=== PATIENT | male | born 1940 | race Caucasian/White ===

== ENCOUNTER 2018-12-02 19:04 | Inpatient (IN) ==
[2018-12-02] MEDS ORDERED: NS 1,000 ML ONE (19:22)
[2018-12-02] MEDS ORDERED: NS 1,000 ML IV ONE (19:25)
--- NOTE | 2018-12-02 19:56 | Diag Imaging Result Doc PS360 ---
EXAM: CHEST-PORTABLE 12/02/2018 HISTORY: ams TECHNIQUE: AP upright portable at 1937 COMMENT: There is cardiomegaly. The inspiration is less optimal than on the previous examination of 12/05/2012. There is increased pulmonary vascularity. There is atelectasis or pneumonia present in the left lower lobe and the right middle lobe. IMPRESSION: Poor inspiration. Cardiomegaly. Bilateral atelectasis versus pneumonia. Electronically signed by Alan Ruggiero 12/02/2018 7:53 PM
[2018-12-02 20:15] LABS: BASO# 0.04 X1000 (0.0-0.2); BASO% 0.3 % (0.0-0.8); EOS# 0.41 X1000 (0.0-0.7); EOS% 2.7 % (0.0-10.0); HEMATOCRIT 36.5 % (42.0-52.0); IMM GRAN# 0.32 X1000 (0.0-0.04); IMM GRAN% 2.1 % (0.0-0.5); LYMPH# 1.11 X1000 (1.2-3.4); LYMPH% 7.4 % (20.5-51.1); MCH 30.6 PG (27-31); MCHC 30.1 g/dL (33-37); MCV 101.7 FL (81-99); MPV 11.3 FL (7.4-10.4); NEUT# 11.61 X1000 (1.4-6.5); NEUT% 77.5 % (42.2-75.2); PLT 338 X1000 (130-400); RBC 3.59 XMIL (4.7-6.1); RDW 16.6 % (11.5-14.5); WBC 14.99 X1000 (4.8-10.8)
[2018-12-02 20:17] LABS: URINE SOURCE CATH
[2018-12-02 20:18] LABS: UR EPITHELIAL CELLS <10 /HPF (<10); URINE BACTERIA NEGATIVE /HPF; URINE RBC <10 /HPF (<10); URINE WBC <10 /HPF (<10)
[2018-12-02 20:19] LABS: BILIRUBIN URINE SMALL (NEGATIVE); BLOOD URINE NEGATIVE (NEGATIVE); COLOR YELLOW; GLUCOSE URINE NEGATIVE (NEGATIVE); KETONE URINE NEGATIVE (NEGATIVE); LEUKOCYTES URINE NEGATIVE (NEGATIVE); NITRITE URINE NEGATIVE (NEGATIVE); PROTEIN URINE 30 mg/dL (NEGATIVE); SP GRAVITY URINE 1.026; TURBIDITY URINE CLEAR (CLEAR); UROBILINOGEN URINE NORMAL (NORMAL)
[2018-12-02] MEDS ORDERED: LEVAQUIN 500 MG/D5W 500 MG/100 ML IVPB IV SCH (20:45)
[2018-12-02 20:52] LABS: ALB/GLOB RATIO 1.2; ALBUMIN 3.4 g/dL (3.5-5.0); CALCIUM 8.2 mg/dL (8.8-10.2); CREATININE 4.4 mg/dL (0.7-1.2); POTASSIUM 5.4 mmol/L (3.5-5.1); TOTAL BILIRUBIN 0.59 mg/dL (0.20-1.00); TOTAL PROTEIN 6.3 g/dL (6.3-8.3)
--- NOTE | 2018-12-02 20:56 | Diag Imaging Result Doc PS360 ---
EXAM: CT HEAD W/O CONTRAST 12/02/2018 HISTORY: ams TECHNIQUE: This exam was performed using automated exposure control, adjustment of mA or kV according to patient size, and/or use of iterative reconstruction technique. COMMENT: There are calcifications in the vertebral and internal carotid arteries as well as the basilar artery. There is mild generalized cerebral atrophy. There is particular ex vacuo enlargement of the posterior horn of the left lateral ventricle. There is no evidence of bleed or mass effect. There is encephalomalacia in the external capsule on the left and around the posterior sylvian fissure. There are no previous studies available for comparison. The visualized paranasal sinuses are clear. The calvarium is intact. IMPRESSION: Atrophy and chronic ischemic change on the left. No evidence of acute disease. Electronically signed by Alan Ruggiero 12/02/2018 8:54 PM
--- NOTE | 2018-12-02 21:03 | Diag Imaging Result Doc PS360 ---
EXAM: CT ABDOMEN/PELVIS W/O CONTRAST 12/02/2018 HISTORY: abdominal distension / pain TECHNIQUE: This exam was performed using automated exposure control, adjustment of mA or kV according to patient size, and/or use of iterative reconstruction technique. COMMENT: The current study is compared with the previous examination of 03/21/2016. There is cardiomegaly which was also present previously. There are bilateral pleural effusions which were not present at the time the previous study. There is compressive atelectasis in both lower lobes and the lingula. There is a large amount of ascites. This was also not present time the previous study. There is anasarca. The spleen has not changed significantly in appearance. The liver is considerably more nodular contour particularly over the lower left lobe. There are bilateral renal cysts one in the upper pole being hyperdense. This was also the case at the time the previous study. The aorta is not distended. There are no apparent gallstones. The pancreas is grossly normal considering the lack of contrast. There is diverticulosis in the sigmoid colon there is a Maya catheter in the bladder. There is a large left hydrocele and fluid containing inguinal hernia on the left. There is a right hip prosthesis. IMPRESSION: Bilateral pleural effusions, anasarca, severe ascites and cirrhosis. Bibasilar atelectasis. Electronically signed by Alan Ruggiero 12/02/2018 9:00 PM
[2018-12-02] MEDS ORDERED: VANCOMYCIN 500 MG/NS 500 MG/100 ML IVPB IV ONE (21:30)
[2018-12-02] MEDS ORDERED: ZOSYN 2.25 GM in NS 50 ML IV ONE (21:30)
[2018-12-02] MEDS ORDERED: MORPHINE IV ONE (22:28)
[2018-12-02] MEDS: LEVOPHED 8 MG in D5 1/2 NS 250 ML IV SCH (22:34)
--- NOTE | 2018-12-02 22:47 | EKG Report ---
Test Performed on : 12/02/2018 9:17:27 PM Test Reason : CP Blood Pressure : / mmHG Vent. Rate : 051 BPM Atrial Rate : 046 BPM P-R Int : 000 ms QRS Dur : 108 ms QT Int : 578 ms P-R-T Axes : 000 -64 -63 degrees QTc Int : 532 ms Atrial fibrillation. with slow ventricular response. Left axis deviation Pulmonary disease pattern Inferior infarct , age undetermined Prolonged QT Abnormal ECG When compared with ECG of 05-DEC-2012 17:56, Significant changes have occurred Unconfirmed Result
[2018-12-02] MEDS ORDERED: LASIX IV SCH (23:13)
[2018-12-02] MEDS ORDERED: VANCOMYCIN IV PER PHARMACY MISC SCH (23:13)
[2018-12-03] MEDS ORDERED: MORPHINE ONE (00:16)
--- NOTE | 2018-12-03 01:05 | PROVIDER DOCUMENTATION ---
This chart was entered by Padmini Rosen Scribe, acting as scribe for Artis Garza MD. HPI-General Adult - General Chief Complaint: Abdominal Pain Stated Complaint: AMS Time Seen by Provider: 12/02/18 19:19 Source: patient Allergies/Adverse Reactions: Patient Allergies Allergy/AdvReac Type Severity Reaction Status Date / Time No Known Allergies Allergy Verified 12/02/18 20:40 Home Medications: Home Medication List Medication Instructions Recorded Confirmed Last Taken Type Amlodipine [Norvasc] 10 mg PO DAILY 11/26/12 11/26/12 11/10/16 History LISINOpril [Prinivil] 40 mg PO DAILY 11/26/12 11/10/16 11/10/16 History Metoprolol Tartrate 100 mg PO BID 11/26/12 11/10/16 11/10/16 History Pravastatin Sodium [Pravachol] 20 mg PO DAILY 11/26/12 11/10/16 11/09/16 History Prazosin [Minipress] 5 mg PO TID 11/26/12 11/10/16 11/10/16 History Tramadol [Ultram] 50 mg PO TID #15 tablet 11/26/12 11/10/16 11/09/16 Rx Ferrous Sulfate [Feosol] 325 mg PO DAILY 11/10/16 11/10/16 11/10/16 History Finasteride 5 mg PO DAILY 11/10/16 11/10/16 11/10/16 History Hydralazine [Apresoline] 10 mg PO TID 11/10/16 11/10/16 11/10/16 History Potassium Chloride E.r. [Micro-K] 10 meq PO DAILY 11/10/16 11/10/16 History Tamsulosin HCl 0.4 mg PO DAILY 11/10/16 11/10/16 11/10/16 History - History of Present Illness -Gen Adult Nature of Presenting Problems: Pt is 78/M presenting to ED via ems. EMS was called by family stating that he was not feeling well and that he had not urinated in over 24 hrs and that he was in pain. Family at bedside sts that he has a sore on his buttocks that is causing him problems. He does not have any current wound care. Pt has hx of CHF Location of Pain/Injury: reports: other (buttock) Pain Radiation: reports: no radiation Quality of Pain: reports: aching, burning Severity: reports: mild Onset/Duration: reports: unsure Timing: reports: still present Context/Activities at Onset: reports: none Modifying Factors: improves with: nothing Associated Symptoms: reports: cough, malaise. denies: syncope, vomiting Similar Symptoms Previously?: No Recently seen or treated by another doctor?: No Review of Systems - Adult - REVIEW OF SYSTEMS - ADULT Constitutional: reports: no symptoms reported Eyes: reports: no symptoms reported Ears, Nose, Mouth & Throat: reports: no symptoms reported Cardiovascular: reports: no symptoms reported Respiratory: reports: no symptoms reported Gastrointestinal: reports: other (distension) Genitourinary: reports: no symptoms reported Musculoskeletal: reports: no symptoms reported Integumentary: reports: no symptoms reported Neurological: reports: no symptoms reported Psychiatric: reports: no symptoms reported Endocrine: reports: no symptoms reported Hematologic/Lymphatic: reports: no symptoms reported Allergic/Immunologic: reports: no symptoms reported All Other Systems: Reviewed and Negative Past History - Adult - PAST MEDICAL HISTORY-ADULT Review of Records: reports: Old Records Reviewed, Nursing Assessment Review, Medications Reviewed, Social history reviewed & non-contributory. Major Childhood Illnesses: reports: denies history Cardiovascular: reports: denies history Respiratory: reports: denies history Gastrointestinal: reports: denies history Obstetrical/Gynecological: reports: denies history Genitourinary: reports: denies history Musculoskeletal: reports: denies history Neurological: reports: denies history Endocrine/Immune: reports: denies history Other Conditions: reports: denies history - PRIOR SURGERIES/PROCEDURES Surgical/Procedure History: reports: reviewed, not pertinent - IMMUNIZATION STATUS Childhood Immunizations: See Nurse Assessment Flu Vaccine: See Nurse Assessment - FAMILY HISTORY Family History: reviewed, not pertinent - SOCIAL HISTORY Smoking: denies Substance Use: none/never Alcohol Use Frequency: never Living Situation: family Physical Exam-General - PHYSICAL EXAM-ADULT Initial Vital Signs Reviewed: Yes - CONSTITUTIONAL General Appearance: mild distress, cachetic, thin, lethargic - EYES Eyes: PERRL/EOMI, pink conjunctivae - HEAD, EARS, NOSE, MOUTH & THROAT HENMT: normocephalic/atraumatic - NECK Neck: non-tender, full range of motion - RESPIRATORY Respiratory: chest non-tender, crackles, rales, prolonged expiration, decreased rate - CARDIOVASCULAR Cardiovascular: normal peripheral pulses, regular rate, rhythm - GASTROINTESTINAL (ABDOMEN) Abdominal Exam: normal bowel sounds, non tender, soft - LYMPHATIC Lymphatic: no adenopathy - MUSCULOSKELETAL Back Exam: normal inspection Extremity: non-tender Peripheral Pulses: radial (R): 2+, radial (L): 2+, dorsalis-pedis (R): 2+, dorsalis-pedis (L): 2+ - SKIN Integumentary: normal color, normal turgor, warm/dry - NEUROLOGIC Neurologic: grossly normal, other (pt refuses to cooperate with neuro exam.) - PSYCHIATRIC Psych/Mental Status: normal mood/affect, normal thought content, normal thought process, oriented x 3 Progress - PLAN OF CARE/RESULTS Progress/Plan/Lab Results: Orders Category Date Time Status 0.9% Sodium Chloride Inj [Ns] 1,000 ml Med 12/02/18 19:22 Discontinued .ROUTE As directed A/P: Hypotension, ELLEN, bilateral pneumonia, ascites. anasarca. stared vanc and zosyn, elevated WBC, dirty urine, started levophed, vitals unstable. Pt DNR/DNI. Dr quinn accepted. Result Diagrams: 12/02/18 19:22 12/02/18 19:22 - EKG 1 Time of EKG reading by physician:: 21:30 EKG Read and Signed by:: Artis Garza EKG Interpretation (*Must complete 3 of following elements*): Abnormal Rate: 51 Rhythm: afib [place]: left QRS: normal MA Interval: normal ST Wave: normal - XRAY 1 XRAY Study: Chest Impression: Abnormal ([facility] - [address], [address] [address] [facility] - [address] [place] [address] Department of Imaging Patient: WAI SUTHERLAND [facility] Date: 12/02/18#: [id number] : 1940[id number] Age/Sex: 78/MRoom/Bed: Loc: ED Ordering Physician: Artis Garza MD Family Physician: Emerita Prince MD Reason for Procedure: ams Signed EXAM: CHEST- PORTABLE 12/02/2018 HISTORY: ams TECHNIQUE: AP upright portable at 1937 COMMENT: There is cardiomegaly. The inspiration is less optimal than on the previous examination of 12/05/2012. There is increased pulmonary vascularity. There is atelectasis or pneumonia present in the left lower lobe and the right middle lobe. IMPRESSION: Poor inspiration. Cardiomegaly. Bilateral atelectasis versus pneumonia. Electronically signed by Alan Ruggiero 12/02/2018 7:53 PM 12/02/181952 Interpreting Physician: Alan Ruggiero MD Dictated Date/Time: 12/02/181951 cc: Artis Garza MD; Emerita Prince MD) - CT/MRI 1 CT Study: Abdomen, Pelvis Impression: Abnormal ([facility] - [address] [facility], [address], [place] [address] [facility] - [address] [place] [address] Department of Imaging Patient: WAI SUTHERLAND [facility] Date: 12/02/18#: [id number] : 1940ADM Status: [facility]#: [id number] Age/Sex: 78/MRoom/Bed: Loc: ED Ordering Physician: Artis Garza MD Family Physician: Emerita Prince MD Reason for Procedure: abdominal distension / pain ___ Signed EXAM: CT ABDOMEN/PELVIS W/O CONTRAST 12/02/2018 HISTORY: abdominal distension / pain TECHNIQUE: This exam was performed using automated exposure control, adjustment of mA or kV according to patient size, and/or use of iterative reconstruction technique. COMMENT: The current study is compared with the previous examination of 03/21/2016. There is cardiomegaly which was also present previously. There are bilateral pleural effusions which were not present at the time the previous study. There is compressive atelectasis in both lower lobes and the lingula. There is a large amount of ascites. This was also not present time the previous study. There is anasarca. The spleen has not changed significantly in appearance. The liver is considerably more nodular contour particularly over the lower left lobe. There are bilateral renal cysts one in the upper pole being hyperdense. This was also the case at the time the previous study. The aorta is not distended. There are no apparent gallstones. The pancreas is grossly normal considering the lack of contrast. There is diverticulosis in the sigmoid colon there is a Maya catheter in the bladder. There is a large left hydrocele and fluid containing inguinal hernia on the left. There is a right hip prosthesis. IMPRESSION: Bilateral pleural effusions, anasarca, severe ascites and cirrhosis. Bibasilar atelectasis. Electronically signed by Alan Ruggiero 12/02/2018 9:00 PM 12/02/18 2100 Interpreting Physician: Alan Ruggiero MD Dictated Date/Time: 12/02/182053 cc: Artis Garza MD; Emerita Prince MD) 3 CT Study: Head Impression: Abnormal ([facility] - [address] [facility] [address] [address] [facility] - [address] [place] [address] Department of Imaging Patient: WAI SUTHERLAND [facility] Date: 12/02/18#: [id number] : 1940ADM Status: REG [facility]#: [id number] Age/Sex: 78/MRoom/Bed: Loc: ED Ordering Physician: Artis Garza MD Family Physician: Emerita Prince MD Reason for Procedure: ams Signed EXAM: CT HEAD W/O CONTRAST 12/02/2018 HISTORY: ams TECHNIQUE: This exam was performed using automated exposure control, adjustment of mA or kV according to patient size, and/or use of iterative reconstruction technique. COMMENT: There are calcifications in the vertebral and internal carotid arteries as well as the basilar artery. There is mild generalized cerebral atrophy. There is particular ex vacuo enlargement of the posterior horn of the left lateral ventricle. There is no evidence of bleed or mass effect. There is encephalomalacia in the external capsule on the left and around the posterior sylvian fissure. There are no previous studies available for comparis on. The visualized paranasal sinuses are clear. The calvarium is intact. IMPRESSION: Atrophy and chronic ischemic change on the left. No evidence of acute disease. Electronically signed by Alan Ruggiero 12/02/2018 8:54 PM 12/02/182053 Interpreting Physician: Alan Ruggiero MD Dictated Date/Time: 12/02/182050 cc: Artis Garza MD; Emerita Prince MD) - CONSULTS/PCP/HOSPITALIST Notification #1 *Consult/PCP/Hospitalist*: Dr quinn Time Discussed: 21:35 Consult Disposition: Admit Departure - Departure Date of Disposition Decision: 12/02/18 Time of Disposition Decision: 21:35 DIAGNOSIS: ELLEN (acute kidney injury), Pneumonia, Anasarca, Ascites, Hypotension Disposition: HOME 01 Certified Medical Emergency: Emergent Condition: Stable - Critical Care Note This patient required my direct & personal management of CC.: Yes Total Time (mins): 48 Critical Care Statement: This patient required my direct personal management to treat or rule out processes, the absence of which, could potentiallly result in sudden, clinically significant life or limb threatening deterioration. Attestation - Physician/ NATTY Attestation Patient care was provided by Advanced Practice Provider:: No The physician spent face to face time with patient:: Yes Advanced Practice Provider documentation review:: Supervising physician onsite and consulted in the evaluation and care of this patient. The physician did have a face to face encounter with the patient. This chart was documented by the indicated scribe, (Padmini Rosen, Yobany) and accurately reflects the services I performed and decisions made by me, Artis Garza MD, as attested by the provider's signature.
--- NOTE | 2018-12-03 01:10 | HISTORY AND PHYSICAL ---
PRIMARY CARE PHYSICIAN: Dr. Emerita Prince. CHIEF COMPLAINT: Shortness of breath and not feeling well. HISTORY OF PRESENTING ILLNESS: A 78-year-old male with a history of atrial fibrillation, hypertension, hyperlipidemia, CVA with right-sided deficits, who had presented to emergency department with 3 days history of worsening shortness of breath and not feeling well. Apparently, he states that he has been deteriorating for the past 2 months and over the past several days he is worse. He has been basically in the bed and not able to get up. He was evaluated in the emergency department. He had imaging done which did show suspicion of pneumonia and also cirrhosis and subsequently it was thought that he will need admission for further management. At the time of my examination, he had denied any headache, fever, chills chest pain, but complained of shortness of breath and not feeling well. The patient is a poor historian. Most of the history is obtained from previous records and family members. PAST MEDICAL HISTORY: Includes atrial fibrillation, hypertension, hyperlipidemia, CVA with right- sided deficit. PAST SURGICAL HISTORY: Right hip surgery. ALLERGIES: No known drug allergies. CURRENT MEDICATIONS: Amlodipine 10 mg p.o. daily, ferrous sulfate 325 mg p.o. daily, finasteride 5 mg p.o. daily, hydralazine 10 mg p.o. t.i.d., lisinopril 40 mg p.o. daily, metoprolol 100 mg p.o. b.i.d., pravastatin 20 mg p.o. daily, prazosin 5 mg p.o. t.i.d., tamsulosin 0.4 mg p.o. daily, tramadol 50 mg p.o. t.i.d. SOCIAL HISTORY: He is a former smoker. History of alcohol abuse in the past. Denies any illicit drug use. FAMILY HISTORY: No history of coronary artery disease. REVIEW OF SYSTEMS: Fourteen point review of systems as listed in HPI. Other systems negative. PHYSICAL EXAMINATION: GENERAL: Cooperative, friendly male. He is resting more comfortably now. VITAL SIGNS: Temperature 96.5 degrees, pulse 38, respirations 22, blood pressure 78/38. HEENT: Atraumatic, normocephalic. PERRLA. Extraocular movements intact. NECK: No masses. CHEST: Bibasilar rales. CARDIOVASCULAR: Regular rate. Regular rhythm. ABDOMEN: Soft, distended, ascitic. EXTREMITIES: No edema. NEUROLOGIC: Awake, alert, oriented x2. GENITOURINARY: No bladder disease. SKIN: Warm. LABORATORIES AND STUDIES: WBC 14.99, hemoglobin 11.1, hematocrit 36.5, platelets 338,000. Sodium 142, potassium 5.4, chloride 110, CO2 is 18, BUN is 68, creatinine is 4.4, glucose is 86. ProBNP is 35,000. Troponin 0.021. Chest x-ray shows pneumonia. Abdominal CT shows severe ascites and cirrhosis. Head CT has chronic ischemic changes. ASSESSMENT: A 78-year-old male with a history of atrial fibrillation, hypertension, hyperlipidemia, cerebrovascular accident, who had presented to the emergency department with 3 days history of worsening shortness of breath. As per family, he has been deteriorating over the past several months and patient was evaluated the emergency department, found to be in heart failure. Subsequently, he will require admission for further management. 1. Congestive heart failure exacerbation. 2. Hypotension. 3. Suspected pneumonia. 4. Cirrhosis with ascites. 5. Acute kidney injury. 6. Superficial fungal infection on buttocks PLAN: 1. We will admit patient to ICU. 2. We will check an echocardiogram. 3. Continue with gentle diuresis. 4. We will consult Cardiology. 5. We will continue with Levophed for pressure support. 6. Check blood cultures. Start patient on IV antibiotics. 7. We will check an abdominal ultrasound and consult Gastroenterology. 8. We will monitor renal function and consult Nephrology. 9. Apply nystatin cream to buttock region 10. We will put patient on DVT prophylaxis with SCD. 11. The patient is a DNR level 1. 12. We will continue to follow, and reassess and make further recommendation based on patient's clinical course. The patient's condition is guarded. cc: Brenton Maradiaga MD MTDD
[2018-12-03] MEDS: LEVOPHED 8 MG in D5 1/2 NS 250 ML IV SCH (05:00)
[2018-12-03 05:47] LABS: BASO# 0.14 X1000 (0.0-0.2); BASO% 0.6 % (0.0-0.8); EOS% 2.5 % (0.0-10.0); HEMATOCRIT 38.9 % (42.0-52.0); HEMOGLOBIN 11.6 g/dL (14.0-18.0); IMM GRAN# 1.03 X1000 (0.0-0.04); IMM GRAN% 4.2 % (0.0-0.5); LYMPH# 1.66 X1000 (1.2-3.4); LYMPH% 6.8 % (20.5-51.1); MCH 30.7 PG (27-31); MCHC 29.8 g/dL (33-37); MCV 102.9 FL (81-99); MONO# 2.75 X1000 (0.11-0.59); MONO% 11.3 % (1.7-9.3); NEUT# 18.09 X1000 (1.4-6.5); NEUT% 74.6 % (42.2-75.2); PLT 419 X1000 (130-400); RBC 3.78 XMIL (4.7-6.1); RDW 16.7 % (11.5-14.5); WBC 24.27 X1000 (4.8-10.8)
[2018-12-03] MEDS ORDERED: ATIVAN IV ONE ×2 (06:05→14:37)
[2018-12-03 06:08] VITALS: BP 103/50
[2018-12-03] MEDS ORDERED: ZOSYN 2.25 GM in NS 50 ML IV SCH (06:30)
[2018-12-03 06:38] LABS: CALCIUM 7.9 mg/dL (8.8-10.2); CREATININE 5.1 mg/dL (0.7-1.2); POTASSIUM 5.9 mmol/L (3.5-5.1)
[2018-12-03 07:24] LABS: BANDS 3 % (0-1); EOS 1 % (1-10); LYMPHS 2 % (21-51); SEGS 72 % (42-75)
[2018-12-03] MEDS ORDERED: MYCOSTATIN CREAM TOP SCH (09:00)
[2018-12-03] MEDS ORDERED: MORPHINE IV PRN ×2 (10:58→14:35)
[2018-12-03] MEDS ORDERED: ATIVAN IV PRN ×2 (11:00→14:37)
[2018-12-03] MEDS ORDERED: MORPHINE IV ONE (11:01)
--- NOTE | 2018-12-03 11:26 | PROGRESS NOTE ---
DATE: 12/03/2018 SUBJECTIVE: Patient was just kind of complaining of pain essentially continuously. OBJECTIVE: Blood pressure is 103/50, heart rate 57, respiratory rate of 12, but that is on 19 mcg of Levophed which is odd.Cardiovascular: Regular rate and rhythm. Pulmonary: Bilateral breath sounds clear to auscultation. Gastrointestinal was soft, nontender, nondistended. Bowel sounds were positive. LABORATORY DATA: White count up to 24,000, hemoglobin 11, hematocrit 38, platelets 419,000. Potassium 5.9, creatinine 5.1. His abdomen is protuberant. RADIOLOGICAL DATA: CT confirmed anasarca, ascites, cirrhosis, atelectasis. Chest x-ray showed cardiomegaly and pulmonary edema and pneumonia. ASSESSMENT: A 78-year-old male with: 1. Congestive heart failure exacerbation. 2. Pneumonia. 3. Cirrhosis. 4. Acute on chronic renal failure. He is a patient of Emerita Prince. As far as I can tell, he has not had an echo here, but clinically, he clearly has CHF. Essentially he has renal failure, he has liver failure, and he has heart failure, which gives him at least a 75% mortality. I think they have had discussions, I want to say with Dr. Clements, and they do not want to pursue any aggressive measures. They refused echocardiogram, they refused abdominal ultrasound, and their family, which is I think is a daughter, is a little bit upset because he cannot get any pain medication, but he is hypotensive on pressors. In any case, we are just going to pursue comfort measures after discussion. If we stop pressors, his mortality may be very high. We will get a hospice evaluation. His pain is not under control. He is continuously writhing in pain, but we will go ahead and start some morphine and admit him for comfort measures, get hospice evaluation, and decide what we are going to do long-term. The patient is a DNR 1. cc: Floyd Bauer MD
--- NOTE | 2018-12-03 11:28 | PROGRESS NOTE ---
DATE: 12/03/2018 ADVANCE CARE DIRECTIVE: I discussed the case with the patient and daughter who is the only daughter, I believe, and she does not want any aggressive measures. She wants to admit him for pain control. She has refused any testing, that being an echo and an ultrasound. Explained that the patient is on pressors and discontinuing that will likely be fatal, but at this point, I do not think it is going to make a difference in the long-term progression. His creatinine is up to 5, he has cirrhosis, he has most likely heart failure, and he has renal failure so we are going to pursue comfort measures alone. Evaluation by hospice for inpatient or outpatient treatment. is eminent. COMPLEXITY: This is a 30-minute note. cc: Floyd Bauer MD
[2018-12-03] MEDS ORDERED: ATROPINE 1 % OPHTH SOLN SL PRN (14:38)
[2018-12-03] MEDS ORDERED: TYLENOL PR PRN (14:38)
--- NOTE | 2018-12-03 18:03 | NEPHROLOGY CONSULTATION ---
DATE: 12/03/2018 REASON FOR ADMISSION: Increased work of breathing with overall decline in health . CONSULTING PHYSICIAN: Dr. Maradiaga. REASON FOR CONSULT: Acute kidney injury. HISTORY OF PRESENT ILLNESS: Mr. Ramírez is a 78-year-old white male with a history of atrial fibrillation, hypertension, chronic kidney disease, who according to his daughter had been up taking care of himself and driving approximately 3 months ago. Within the last week she states that she has moved in with him to help care for him because of his increased weakness and increased work of breathing. He is brought to the emergency room with a 3-day history of worsening shortness of breath, abdominal swelling, decreased appetite and altered mental status. In the emergency room it was found that he had suspicion of pneumonia with cirrhosis and subsequently he was needing further admission and management for his acute kidney injury. At the time of the exam he had no complaints of headache, nausea, vomiting, diarrhea, fever, chills or chest pain, positive for increased work of breathing, positive for abdominal swelling and lower extremity swelling. The patient is a poor historian. His daughter is at the bedside and states she is just concerned about his well-being. He is a DNR level 1. 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 PAST SURGICAL HISTORY: Right hip surgery. SOCIAL HISTORY: He lives alone up until approximately 1 week ago. He has daughter is his caregiver. He is a former smoker. Previous history of alcohol up until the age of 40 when he had a stroke. Denies any illicit drug use. FAMILY HISTORY: No coronary artery disease. No kidney disease. ALLERGIES: Listed as no known drug allergies. HOME MEDICATIONS: Amlodipine, ferrous sulfate, finasteride, hydralazine, lisinopril metoprolol, pravastatin, prazosin, tamsulosin, tramadol, according to the daughter he was recently started on low-dose Lasix by Dr. Emerita Prince within the last 2 weeks. REVIEW OF SYSTEMS: Times 10 with pertinent positives listed above in the HPI. Patient is poor historian, most information obtained from chart and per daughter at the bedside. Patient's most recent vital signs his temperature this a.m. 96.5, blood pressure 103/50, heart rate 57, respirations 12, he is currently on 2 L nasal cannula, last recorded saturation 96%. He is currently on Levophed. Last blood pressure was 87/53. LAB: Sodium 142, potassium 5.4, chloride 110, CO2 18, BUN 68, creatinine 4.4, glucose 86, anion gap of 14, calcium 8.2, phosphorus 3.4, TSH 4.21. White count 24.26, hemoglobin 11.6, hematocrit 38.9 with a platelet count of 419,000. Patient has only voided 50 mL recorded out. He currently is receiving Levophed. No IV fluid boluses. CT of the abdomen on admission shows bilateral pleural effusions, anasarca, severe ascites and cirrhosis, bibasilar atelectasis. Patient had a CT of the head showing atrophy with chronic ischemic changes, no evidence of acute disease. PHYSICAL EXAMINATION: This is a 78-year-old elderly male who appears in moderate distress secondary to overall pain.HEENT: Normocephalic, atraumatic. Conjunctiva is pale. He has MADDISON. Mucous membranes are dry. Neck: Supple. Trachea midline. Unable to determine JVD. Cardiovascular: He is irregular on the monitor. Heart rate is in the 50s. Lungs: Have bibasilar crackles. He remains on O2 support. Abdomen: Slightly tender on palpation. He does have some distention. He does have a noted fluid wave on ballottement and percussion. Lower extremities have 3+ lower extremity edema. He has right great toe that appears bruised. Genitourinary: Not inspected. Integument: No rashes or lesions to the anterior surface. Neurological: He is confused. He is alert to person and to pain. ASSESSMENT AND PLAN: 1. Acute kidney injury. Patient's BUN and creatinine are elevated. It appears his baseline creatinine is 1.3 approximately 1 year ago. This appears to be multifactorial. Patient is more likely in cardiogenic shock. He is requiring Levophed support. Decreased urinary output with severe cardiomegaly. Pleural effusions evident. Cardiology has been consulted. 2. Electrolytes and acid-base balance. These are acceptable. 3. Anemia. This is close to target. 4. Suspected pneumonia. Patient has been treated with vancomycin and Zosyn. 5. Do not resuscitate status. We have offered on a temporary basis dialysis support if deemed necessary by Cardiology. Dr. Clements has spoken to Dr. Angelito Ramírez, awaiting further monitoring and evaluation. Daughter states that she is unsure of dialysis. He is a do not resuscitate level 1 and is possibly leaning toward palliative support. Like to thank you for allowing us to follow with this patient. Dictated by ANGES Ho for Major Clements MD Face to face encounter, data reviewed, discussed with Mingo Cervantes on 12/03/18. I agree with the above assessment and plan of care. cc: AGNES Ho MD [facility]
[2018-12-03] MEDS ORDERED: NEURONTIN PO SCH (21:00)
[2018-12-04] MEDS ORDERED: PROSCAR PO SCH (09:00)
[2018-12-04] MEDS ORDERED: ASPIRIN EC PO SCH (09:00)
[2018-12-04] MEDS ORDERED: FERROUS SULFATE PO SCH (09:00)
[2018-12-05] MEDS ORDERED: VANCOMYCIN 500 MG/NS 500 MG/100 ML IVPB IV SCH (12:00)
--- NOTE | 2019-02-18 16:43 | DISCHARGE SUMMARY ---
ADMISSION DATE: 12/02/2018 DISCHARGE DATE: 12/03/2018 DISCHARGE DIAGNOSIS: 1. Cirrhosis. 2. Hepatorenal syndrome with acute kidney failure. 3. Pneumonia. Patient was admitted per Dr. Farris and she was placed on Levophed and diuretics and IV antibiotics. Nephrology, GI was consulted. In any case he rapidly decompensated. He has liver failure, he had heart failure and now renal failure with high mortality. He did not want to pursue any aggressive measures, no echocardiogram, no ultrasound, no further labs. She wanted him to be in pain control, hypotensive on pressors and we decided to discontinue the pressors and pursue comfort measures and patient was discontinued around 1129 and at 1527 patient was pulseless and apneic. Cause of again felt to be hepatorenal syndrome in the setting of heart failure and cirrhosis. TIME SPENT: 32 minutes. cc: Emerita Prince MD
== END 2018-12-03 17:36 | disposition expired | DRG 291 ==
LOC: SUPCPDRO → ED 19:04 → EDIPHOLD 19:05 → SUATTDRO 19:05 → 4N 12-03 11:58
PROVIDERS: ATTEND Internal Medicine